=== PATIENT | female | born 1985 | race Caucasian/White ===

== ENCOUNTER 2018-04-21 22:01 | Emergency (ER) | payer OTHER ==
[~2018-04-21] VITALS: Ht 152.4 cm; Wt 69.8 kg
[2018-04-21 22:05] VITALS: BP 142/97
[2018-04-21] MEDS ORDERED: KEFLEX500 M1 PO (22:59)
[2018-04-21] MEDS ORDERED: HYDROCODONE-AP1 EAC6 PO (23:00)
== END 2018-04-21 23:19 | disposition home or self-care (01) ==
LOC: ER 22:01
DX: S40.852A Superficial foreign body of left upper arm, initial encounter (principal); Z23 Encounter for immunization; I10 Essential (primary) hypertension; Z88.1 Allergy status to other antibiotic agents; Z88.2 Allergy status to sulfonamides; Z88.8 Allergy status to other drugs, medicaments and biological substances; W45.8XXA Other foreign body or object entering through skin, initial encounter; Y93.89 Activity, other specified; Y92.89 Other specified places as the place of occurrence of the external cause; Y99.8 Other external cause status